=== PATIENT | male | born 1955 | race Hispanic/Latino ===

== ENCOUNTER 2022-02-05 18:53 | Emergency (ER) | payer SELFPAY ==
[2022-02-05 19:41] VITALS: BP 130/79
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
== END 2022-02-06 05:21 | disposition home or self-care (01) ==
LOC: ED 18:53
DX: R51.9 Headache, unspecified (principal); M62.838 Other muscle spasm; M62.830 Muscle spasm of back; V89.2XXA Person injured in unspecified motor-vehicle accident, traffic, initial encounter; Y93.89 Activity, other specified; Y92.89 Other specified places as the place of occurrence of the external cause; Y99.8 Other external cause status
CPT/HCPCS: 70450; 99283